=== PATIENT | female | born 1940 | race Caucasian/White ===

== ENCOUNTER → 2018-09-10 09:30 | Outpatient (CLI) | payer MEDICARE, SELFPAY ==
[2018-09-10 09:00] VITALS: BMI 21.2
[2018-09-10 09:58] LABS: Absolute Lymphocyte Count 1.18 X10^3/ul (0.83-4.51); Absolute Neutrophil Count 1.8 X10^3/uL (2.0-7.7); Basophil# 0.03 X10^3/uL; Basophil% 0.8 % (0-1); Eosinophil# 0.16 X10^3/uL; Eosinophils% 4.5 % (0-5); Hematocrit 40.3 % (37-47); Hemoglobin 13.1 g/dl (12.0-15.0); Lymphocyte # 1.18 X10^3/ul (4.0); Mean Corp Hgb Conc 32.5 g/gl (32-36); Mean Corpuscular Hgb 30.6 pg (27.0-32.0); Mean Corpuscular Volume 94.2 fL (81-99); Mean Platelet Vol. 9.7 fl (6.2-12.0); Monocyte# 0.41 X10^3/uL; Monocyte% 11.5 % (0-10); Neutrophil % 50.2 % (47-70); Platelet Count 205 K/mm3 (150-450); RBC Distribution Width CV 12.7 % (11.6-14.6); RBC Distribution Width SD 43.3 fl (35.1-43.9); Red Blood Count 4.28 M/mm3 (4.2-5.4); White Blood Count 3.6 K/mm3 (4.4-11.0)
[2018-09-10 09:59] LABS: POSITIVE COUNT NO; POSITIVE DIFFERENTIAL NO; POSITIVE MORPHOLOGY NO
== END ==
PROVIDERS: Family Provider Internal Medicine; PCP Internal Medicine; Referring Provider Surgery; Visit Provider Surgery
DX: R19.5 Other fecal abnormalities (principal)
CPT/HCPCS: 36415; 85025

== ENCOUNTER → 2018-09-17 14:26 | Outpatient (CLI) | payer MEDICARE, SELFPAY ==
[2018-09-10 09:00] VITALS: BMI 21.2
--- NOTE | 2018-09-17 14:27 | BI_ITS ---
MAMMOGRAPHY - BILATERAL SCREENING REASON FOR EXAM: Female, 77 years old. Routine annual screening examination. PERTINENT HISTORY: Non-contributory. TECHNIQUE: Digital bilateral breast manjinder (3D mammographic acquisition) in the CC and MLO projections. 2-D mediolateral oblique (MLO) and craniocaudad (CC) views of both breasts were obtained. CAD: Full Field Digital Mammography with Computer Added Detection was performed. COMPARISON: Comparison is made with prior study dated February 18, 2017 and June 06, 2015. FINDINGS: Breast Composition: The breasts are heterogeneously dense, which may obscure small masses. There are no dominant masses or suspicious calcifications. No other significant abnormalities are identified. There has been no significant change since the prior study. BI/SCREENING MAMM (CAD), BILAT IMPRESSION: Stable bilateral screening mammogram. Yearly follow-up mammogram recommended. (A) ASSESSMENT CATEGORY: BIRADS Category 1: Negative. A letter regarding these results will be sent to the patient by the facility within 30 days. Approximately 10% of breast cancers are not detected by mammography. A normal mammogram should not delay biopsy of a clinically suspicious abnormality. [id number] Electronically Signed: Willard Correa, at 15:34 EST , Service support ,
== END ==
PROVIDERS: Family Provider Internal Medicine; PCP Internal Medicine; Referring Provider Internal Medicine; Visit Provider Internal Medicine
DX: Z12.31 Encounter for screening mammogram for malignant neoplasm of breast (principal)
CPT/HCPCS: 77063; 77067

== ENCOUNTER 2018-09-22 07:39 | Day surgery (SDC) | payer MEDICARE, SELFPAY ==
[2018-09-10 09:00] VITALS: BMI 21.2
[2018-09-22 08:05] VITALS: BP 167/71; PULSE 64; RESP 16; TEMP 36.8; O2SAT 99; BMI 21.2
--- NOTE | 2018-09-22 09:00 | COLBX_PTH ---
PATIENT: MARI SHUKLA LOC: EN U#:[id number] AGE/SX: 77/F ROOM: RE09/22/[address]: Dr. Artemio Bernard MD : 1940 BED: DIS: 09/22/2018 SPEC #: [id number] RECD: 09/22/18 10:19 STATUS: RADHA FARIDA #: [id number] EFRA: 09/22/18 09:[address]: Artemio Bernard DEPT: SURGICAL PATHOLOGY RECD BY: Paulie Umanzor ENTERED: 09/22/18 11:36 SP TYPE: COLON BX OTHR DR: Dr. Dariana Pepper DO Tissues: A - Gastric mucous membrane B - Gastric mucous membrane Procedures: Special Stain Group II Surgery Specimen Level IV Alcian Blue/PAS (control) HEADER OPERATION: Colonoscopy, EGD ([facility] [place]) PRE-OP DIAGNOSIS: Positive Cologuard TISSUE SUBMITTED: A - Biopsy gastric antrum, H. pylori and path, B - Biopsy GE junction MICROSCOPIC DIAGNOSIS A. Gastric antrum, biopsy: Chronic gastritis. See comment. B. Gastroesophageal junction, biopsy: Consistent with reflux esophagitis. Junctional mucosa with chronic inflammation. No evidence of intestinal metaplasia. See comment. AM:rita 09/23/18 COMMENT A. The results of immunohistochemistry for Helicobacter pylori will be reported separately ([id number]). B. Alcian blue/PAS stain with matched control supports the above diagnosis. MICROSCOPIC DESCRIPTION Slides are reviewed. GROSS DESCRIPTION A - Received in fixative is one container labeled with the patient's name and designated biopsy gastric antrum. The specimen consists of one irregular fragment of light hendrickson soft tissue that measures 0.6 x 0.2 x 0.1 cm. The specimen is totally submitted in one cassette. B - Received in fixative is one container labeled with the patient's name and designated biopsy GE junction. The specimen consists of multiple irregular fragments of light hendrickson soft tissue that in aggregate measure 0.6 x 0.2 x 0.1 cm. The specimen is totally submitted in one cassette. / SJ:rita 09/22/18 TC:3 CPT: 82240 x2, 22153
--- NOTE | 2018-09-22 09:00 | IMM_PTH ---
PATIENT: MARI SHUKLA LOC: DAVID U#:[id number] AGE/SX: 77/F ROOM: RE09/22/[address]: Dr. Artemio Bernard MD : 1940 BED: DIS: 09/22/2018 SPEC #: [id number] RECD: 09/22/18 12:25 STATUS: RADHA FARIDA #: [id number] EFRA: 09/22/18 09:[address]: Artemio Bernard DEPT: IMMUNOHISTOCHEMISTRY RECD BY: Leticia Garcia ENTERED: 09/22/18 12:25 SP TYPE: IMMUNO OTHR DR: Dr. Dariana Pepper DO Tissues: A - Stomach, NOS Procedures: H Pylori (initial) PHYSICIAN & INSTITUTION [place] [id number] SPECIMEN INFORMATION: Tissue Source: A - Gastric antrum biopsy Clinical Info: Positive Cologuard Specimen Number: [id number] CPT code: 44272 METHODOLOGY: Deparaffinized sections of prefer/formalin-fixed tissue or PAP/DQ stained slides are incubated with monoclonal/polyclonal antibodies/oligonucleotide probes. Localization is made via biotin free immunoperoxidase method. Appropriate controls are performed and reacted as expected. Results on target cell population are indicated in the following table: RESULTS: ANTIBODY / CLONE RESULT Block A H Pylori (polyclonal) negative These tests were developed and their performance characteristics determined by [facility]. They may not have been cleared or approved by the U.S. Food and Drug Administration. The FDA has determined that such clearance or approval is not necessary. INTERPRETATION: A. Gastric antrum, biopsy: Negative for Helicobacter pylori organisms. SJ:rita 09/23/18
[2018-09-22 09:50] VITALS: BP 105/62; BP 167/71; PULSE 65; RESP 14; TEMP 35.7; O2SAT 99
--- NOTE | 2018-09-22 09:52 | OP.ENDO_ITS ---
09/22/2018 Dariana Pepper [address] [place] [address] Re : Upper GI endoscopy procedure for [place] Dear Dr. Pepper This procedure was performed on Saturday, September 22, 2018. My impressions and recommendations are as follows: Impressions : - Z-line regular, 30 cm from the incisors. Non obstructing Schatzki ring Biopsied. - Erythematous mucosa in the antrum. Biopsied. - Normal examined duodenum. Recommendations : - Discharge patient to home. - Resume previous diet. - Continue present medications. - Telephone my office for pathology results in 1 week. Minimal gastritis might be source of false positive [place] guard My findings are described in the full procedure note, which is enclosed. If I can be of further assistance, please feel free to contact me at Doctor phone number(s): Work: . Sincerely, Artemio Bernard MD 09/22/2018 9:51:22 AM This report has been signed electronically.
--- NOTE | 2018-09-22 09:54 | OP.ENDO_ITS ---
09/22/2018 Dariana Pepper [address] [place] [address] Re : Colonoscopy procedure for [place] Dear Dr. Pepper This procedure was performed on Saturday, September 22, 2018. My impressions and recommendations are as follows: Impressions : - Decreased sphincter tone, non-thrombosed external hemorrhoids, non-thrombosed internal hemorrhoids and internal hemorrhoids that prolapse with straining, but require manual replacement into the anal canal (Grade III) found on digital rectal exam. - Tortuous colon. - The examination was otherwise normal. - No specimens collected. Recommendations : - Discharge patient to home. - Resume previous diet. - Repeat colonoscopy in 10 years for screening purposes. - Continue present medications. My findings are described in the full procedure note, which is enclosed. If I can be of further assistance, please feel free to contact me at Doctor phone number(s): Work: . Sincerely, Artemio Bernard MD 09/22/2018 9:54:22 AM This report has been signed electronically.
[2018-09-22 09:55] VITALS: BP 108/57; BP 167/71; PULSE 62; RESP 14; O2SAT 98
[2018-09-22 10:00] VITALS: BP 167/71; BP 98/57; PULSE 67; RESP 14; O2SAT 99
[2018-09-22 10:03] VITALS: BP 167/71; BP 97/63; PULSE 66; RESP 14; TEMP 35.9; O2SAT 98
[2018-09-22 10:17] VITALS: BP 167/71
== END 2018-09-22 10:27 | disposition home or self-care (01) ==
LOC: EN 07:40 → AC 07:41
PROVIDERS: Family Provider Internal Medicine; PCP Internal Medicine; Referring Provider Surgery; Visit Provider Surgery
PROC: 0DJD8ZZ Inspection of Lower Intestinal Tract, Via Natural or Artificial Opening Endoscopic (ICD-10-PCS; CPT 45378; principal; 2018-09-22 08:55)
DX: K29.50 Unspecified chronic gastritis without bleeding (principal); R19.5 Other fecal abnormalities; K62.89 Other specified diseases of anus and rectum; K64.2 Third degree hemorrhoids; K64.4 Residual hemorrhoidal skin tags; Q43.8 Other specified congenital malformations of intestine; K31.89 Other diseases of stomach and duodenum
CPT/HCPCS: 43239; 45378; 88305; 88313; 88342; J7120

== ENCOUNTER → 2020-03-14 16:22 | Outpatient (CLI) | payer MEDICARE, SELFPAY ==
--- NOTE | 2020-03-14 16:24 | BI_ITS ---
MAMMOGRAPHY - BILATERAL SCREENING REASON FOR EXAM: Female, 79 years old. Routine annual screening examination. PERTINENT HISTORY: Non-contributory. TECHNIQUE: Digital bilateral breast abi (3D mammographic acquisition) in the CC and MLO projections. 2-D mediolateral oblique (MLO) and craniocaudad (CC) views of both breasts were obtained. CAD: Full Field Digital Mammography with Computer Added Detection was performed. COMPARISON: Comparison is made with prior examination dated 09/17/2018 and 02/18/2017. FINDINGS: Breast Composition: The breasts are heterogeneously dense, which may obscure small masses. There are no dominant masses or suspicious calcifications. No other significant abnormalities are identified. There has been no significant change since the prior study. BI/SCREEN MAMM (CAD) W/ABI BILAT IMPRESSION: Stable bilateral screening mammogram. Yearly follow-up mammogram recommended. (A) ASSESSMENT CATEGORY: BIRADS Category 1: Negative. A letter regarding these results will be sent to the patient by the facility within 30 days. Approximately 10% of breast cancers are not detected by mammography. A normal mammogram should not delay biopsy of a clinically suspicious abnormality. [id number] Electronically Signed: Willard Correa, at 8:47 EDT , Service support ,
== END ==
PROVIDERS: PCP Internal Medicine; Referring Provider Internal Medicine; Visit Provider Internal Medicine
DX: Z12.31 Encounter for screening mammogram for malignant neoplasm of breast (principal)
CPT/HCPCS: 77063; 77067

== ENCOUNTER 2021-07-13 11:16 | Outpatient (CLI) | payer MEDICARE, SELFPAY ==
[2021-07-13 11:20] VITALS: PULSE 62; RESP 16; TEMP 36.8; O2SAT 98; BMI 20.6
[2021-07-13] MEDS: 0.9% Saline Lock 10 ML Syringe IV (11:25)
[2021-07-13 12:02] VITALS: BP 128/69; PULSE 54; RESP 16; TEMP 36.9; O2SAT 98
[2021-07-13 12:53] VITALS: BP 134/77; PULSE 56; RESP 16; TEMP 36.9; O2SAT 96
== END 2021-07-13 13:03 | disposition home or self-care (01) ==
LOC: MS3OUT 11:16 → MS3 11:17
PROVIDERS: PCP Internal Medicine; Referring Provider Internal Medicine Pulmonary Disease; Visit Provider Internal Medicine Pulmonary Disease
DX: U07.1 COVID-19 (principal)
CPT/HCPCS: J7050; M0245; Q0245; A4216

== ENCOUNTER → 2022-01-29 | Outpatient (CLI) | payer MEDICARE, SELFPAY ==
--- NOTE | 2022-01-29 10:36 | BI_ITS ---
MAMMOGRAPHY - BILATERAL SCREENING REASON FOR EXAM: Female, 81 years old. Routine annual screening examination. PERTINENT HISTORY: Non-contributory. TECHNIQUE: Digital bilateral breast abi (3D mammographic acquisition) in the CC and MLO projections. 2-D mediolateral oblique (MLO) and craniocaudad (CC) views of both breasts were obtained. CAD: Full Field Digital Mammography with Computer Added Detection was performed. COMPARISON: Comparison is made with prior study dated 03/14/2020 and 09/17/2018. FINDINGS: Breast Composition: The breasts are heterogeneously dense, which may obscure small masses. There are no dominant masses or suspicious calcifications. No other significant abnormalities are identified. There has been no significant change since the prior study. BI/SCRN MAMM (CAD)W/ABI BILAT IMPRESSION: Stable bilateral screening mammogram. Yearly follow-up mammogram recommended. (A) ASSESSMENT CATEGORY: BIRADS Category 1: Negative. A letter regarding these results will be sent to the patient by the facility within 30 days. Approximately 10% of breast cancers are not detected by mammography. A normal mammogram should not delay biopsy of a clinically suspicious abnormality. [id number] Electronically Signed: Willard Correa MD at 11:15 EDT ,
== END | disposition home or self-care (01) ==
LOC: OPBI 10:34
PROVIDERS: PCP Internal Medicine; Referring Provider Internal Medicine; Visit Provider Internal Medicine
DX: Z12.31 Encounter for screening mammogram for malignant neoplasm of breast (principal)
CPT/HCPCS: 77063; 77067

== ENCOUNTER → 2022-02-18 | Outpatient (CLI) | payer MEDICARE, SELFPAY ==
--- NOTE | 2022-02-18 12:56 | CDU_ITS ---
Reason For Study: carotid stenosis Rt. Velocities/BP Lt. Velocities/BP Prox CCA 111.2/14.7 cm/sec. Prox CCA 79.6/9.7 cm/sec. Mid CCA 77.3/12.1 cm/sec. Mid CCA 77.8/12.6 cm/sec. Dist CCA 57.8/8.2 cm/sec. Dist CCA 93.8/14.5 cm/sec. Prox ICA 45.6/10.7 cm/sec. Prox ICA 74.0/14.5 cm/sec. Mid ICA 69.3/16.3 cm/sec. Mid ICA 90.0/23.0 cm/sec. Dist ICA 57.2/13.7 cm/sec. Dist ICA 56.8/14.5 cm/sec. Rt. ICA/CCA = .9. Lt. ICA/CCA = 1.2. Prox ECA 81.5/6.9 cm/sec. Prox ECA 75.9/6.9 cm/sec. Rt. Vert. 45.6/4.6 cm/sec. Lt. Vert. 52.0/9.1 cm/sec. Right Extracranial There is homogeneous, smooth atherosclerotic plaque noted in the right common carotid artery. There is intimal thickening but no significant atherosclerotic plaque noted in the right internal carotid artery. There is intimal thickening but no significant atherosclerotic plaque noted in the right external carotid artery. Antegrade flow is noted in the right vertebral artery. Left Extracranial There is heterogeneous, irregular atherosclerotic plaque noted in the left common carotid artery. There is intimal thickening but no significant atherosclerotic plaque noted in the left internal carotid artery. The left internal carotid artery is very tortuous. There is intimal thickening but no significant atherosclerotic plaque noted in the left external carotid artery. Antegrade flow is noted in the left vertebral artery. Procedure Carotid Duplex [id number]. This is a Carotid Duplex examination using B-mode, color flow and specral Doppler. The exam was diagnostic. Exam performed in department. VL/Carotid Duplex Ultrasound Interpretation Summary Mild (<50%) stenosis right extracranial internal carotid. Mild (<50%) stenosis left extracranial internal carotid. Flow within the vertebral arteries is antegrade bilaterally. Ordering Physician: Dariana Pepper Performed By: Kade Lovelace RVT
--- NOTE | 2022-02-18 13:08 | ART_ITS ---
Reason For Study: PVD Procedure A bilateral lower extremity continuous wave Doppler with analog waveform analysis,segmental pressures,and ankle brachial indexes with exercise. Left Segmental Pressures Left brachial= 154mmHg. Left posterior tibial artery = 171mmHg. Left dorsalis pedis artery = 163mmHg. The left dorsalis pedis waveforms are triphasic. The left posterior tibial artery waveforms are triphasic. Right Segmental Pressures Right brachial= 146mmHg. Right posterior tibial artery = 165mmHg. Right dorsalis pedis artery = 161mmHg. The right dorsalis pedis waveforms are triphasic. The right posterior tibial artery waveforms are triphasic. Indices The right ankle brachial index by the dorsalis pedis is 1.05. The right ankle brachial index by the posterior tibial artery is 1.07. The right post exercise ankle brachial index is 1.11. The left ankle brachial index by the dorsalis pedis is 1.06. The left ankle brachial index by the posterior tibial artery is 1.11. The left post exercise ankle brachial index is 1.15. VL/Lower Ext Art Exam w/ Exercise Interpretation Summary Bilateral lower extremities with no evidence of significant occlusive disease a t rest with triphasic flow and an BRYANNA 1.07 and 1.11. Post exercise with no drop measuring 1.07 and 1. 15. Ordering Physician: Dariana Pepper Performed By: Kade Lovelace RVT
== END | disposition home or self-care (01) ==
PROVIDERS: PCP Internal Medicine; Referring Provider Internal Medicine; Visit Provider Internal Medicine
DX: I65.23 Occlusion and stenosis of bilateral carotid arteries (principal); I73.9 Peripheral vascular disease, unspecified
CPT/HCPCS: 93880; 93924

== ENCOUNTER → 2022-11-18 | Outpatient (CLI) | payer MEDICARE, SELFPAY | END | disposition home or self-care (01) | LOC: LABSPEC 11:17 | PROVIDERS: PCP Internal Medicine; Referring Provider Obstetrics & Gynecology; Visit Provider Obstetrics & Gynecology | DX: N89.8 Other specified noninflammatory disorders of vagina (principal) | CPT/HCPCS: 87070; 87205 ==

== ENCOUNTER → 2024-05-13 | Outpatient (CLI) | payer MEDICARE, SELFPAY ==
--- NOTE | 2024-05-13 15:22 | BI_ITS ---
MAMMOGRAPHY - BILATERAL SCREENING REASON FOR EXAM: Female, 83 years old. Routine annual screening examination. PERTINENT HISTORY: Non-contributory. TECHNIQUE: Digital bilateral breast abi (3D mammographic acquisition) in the CC and MLO projections. 2-D mediolateral oblique (MLO) and craniocaudad (CC) views of both breasts were obtained. CAD: Full Field Digital Mammography with Computer Added Detection was performed. COMPARISON: Comparison is made with prior study dated January 29, 2022 and March 14, 2020. FINDINGS: Breast Composition: The breasts are heterogeneously dense, which may obscure small masses. There are no dominant masses or suspicious calcifications. No other significant abnormalities are identified. There has been no significant change since the prior study. BI/SCRN MAMM (CAD)W/ABI BILAT IMPRESSION: Stable bilateral screening mammogram. Yearly follow-up mammogram recommended. (A) ASSESSMENT CATEGORY: BIRADS Category 1: Negative. A letter regarding these results will be sent to the patient by the facility within 30 days. Approximately 10% of breast cancers are not detected by mammography. A normal mammogram should not delay biopsy of a clinically suspicious abnormality. [id number] Electronically Signed: Willard Correa MD at 8:24 EDT ,
== END | disposition home or self-care (01) ==
LOC: OPBI 15:22
PROVIDERS: PCP Internal Medicine; Referring Provider Internal Medicine; Visit Provider Internal Medicine
DX: Z12.31 Encounter for screening mammogram for malignant neoplasm of breast (principal)
CPT/HCPCS: 77063; 77067

== ENCOUNTER → 2025-05-17 | Outpatient (CLI) | payer MEDICARE, SELFPAY ==
--- NOTE | 2025-05-17 09:30 | LES_PTH ---
PATIENT: MARI SHUKLA LOC: ERIC U#:[id number] AGE/SX: 84/F ROOM: RE05/17/[address]: Dr. Dariana Pepper DO : 1940 BED: DIS: 05/17/2025 SPEC #: [id number] RECD: 05/17/25 15:56 STATUS: RADHA FARIDA #: [id number] EFRA: 05/17/25 09:[address]: Dariana Pepper DEPT: SURGICAL PATHOLOGY RECD BY: Mumtaz Apodaca Tissues: A - Skin of arm Procedures: Surgery Specimen Level IV HEADER OPERATION: Biopsy of right arm lesion PRE-OP DIAGNOSIS: Skin lesion of right arm TISSUE SUBMITTED: A- Right arm, shave biopsy MICROSCOPIC DIAGNOSIS A. Right arm, skin shave biopsy: - Invasive squamous cell carcinoma, well-differentiated, margins free. - Thickness of 1.6 mm. - No lymphovascular space invasion identified. MICROSCOPIC DESCRIPTION Slides are reviewed. GROSS DESCRIPTION A. Received in formalin labeled with the patient's name and date of . Designated as "right arm shave biopsy" is a 1.1 x 0.9 x <0.1 cm hendrickson skin shave. There is a 0.8 x 0.7 x 0.2 cm hendrickson-crook, raised and firm lesion comprising approximately 95% of the epidermal surface and located <0.1 cm from the peripheral edge. The resection margin is inked green and the specimen is serially sectioned. Entirely submitted in 1 cassette. ME 05/18/2025 CPT:17059
== END | disposition home or self-care (01) ==
LOC: LABSPEC 16:20
PROVIDERS: PCP Internal Medicine; Referring Provider Internal Medicine; Visit Provider Internal Medicine
DX: C44.622 Squamous cell carcinoma of skin of right upper limb, including shoulder (principal)
CPT/HCPCS: 88305